=== PATIENT | male | born 1975 | race Two or more races ===

== ENCOUNTER 2021-05-29 10:45 | Emergency (ER) | payer MEDICAID ==
[~2021-05-29] VITALS: Ht 175.3 cm; Wt 85.0 kg
[2021-05-29] MEDS ORDERED: DIPHENHYDRAMINE 50MG/ML VIAL IV ONE (11:45)
[2021-05-29] MEDS ORDERED: ACETAMINOPHEN 325MG TABLET PO ONE ×2 (11:45→13:45)
[2021-05-29] MEDS ORDERED: SODIUM CHLORIDE 0.9% 1,000 ML IV ONE (11:45)
[2021-05-29] MEDS ORDERED: METOCLOPRAMIDE HCL 10MG/2ML VIAL IV ONE (11:45)
[2021-05-29] MEDS ORDERED: KETOROLAC 15MG/ML VIAL IV ONE (12:00)
[2021-05-29 13:41] VITALS: BP 126/73
[2021-05-30] MEDS ORDERED: IBUP-2029 MT (14:18)
[2021-05-30] MEDS ORDERED: TRAM50TA3 MT (14:18)
== END 2021-05-29 13:50 | disposition home or self-care (01) ==
LOC: ER 10:45
DX: R51.9 Headache, unspecified (principal)
CPT/HCPCS: 96361; 96374; 96375; 99284; J1200; J1885; J2765; J7030; Z7610

== ENCOUNTER 2021-05-30 09:29 | Emergency (ER) | payer MEDICAID ==
[~2021-05-30] VITALS: Ht 175.3 cm; Wt 85.0 kg
[2021-05-30] MEDS ORDERED: TRAMADOL 50MG TABLET PO ONE (10:45)
[2021-05-30] MEDS ORDERED: ACETAMINOPHEN 325MG TABLET PO ONE (10:45)
[2021-05-30] MEDS ORDERED: ONDANSETRON 4MG ODT PO ONE (10:45)
[2021-05-30] MEDS ORDERED: KETOROLAC 60MG/2ML VIAL IM ONE (13:00)
[2021-05-30] MEDS ORDERED: TRAM50TA3 MT (14:18)
[2021-05-30] MEDS ORDERED: IBUP-2029 MT (14:18)
[2021-05-30 14:35] VITALS: BP 140/78
== END 2021-05-30 14:47 | disposition home or self-care (01) ==
LOC: ER 09:29
DX: G43.009 Migraine without aura, not intractable, without status migrainosus (principal); I49.9 Cardiac arrhythmia, unspecified; Z88.0 Allergy status to penicillin
CPT/HCPCS: 70450; 93005; 96372; 99284; J1885; Q0162